=== PATIENT | female | born 1985 | race Caucasian/White ===

== ENCOUNTER 2021-01-18 22:11 | Inpatient (IN) | payer BC, OTHER ==
[~2021-01-18] VITALS: Ht 160 cm; Wt 94.0 kg
[2021-01-18] MEDS ORDERED: KETOROLAC 30 MG/1 ML IVPush ONE (23:30)
[2021-01-18] MEDS ORDERED: SODIUM CHLORIDE FLUSH 10ML SYR IVF ONE (23:30)
[2021-01-18] MEDS ORDERED: MORPHINE SULFATE 4 MG/ML, 1ML IVPush PRN (23:30)
[2021-01-18] MEDS ORDERED: KETOROLAC 30 MG/1 ML ONE (23:40)
[2021-01-18] MEDS ORDERED: MORPHINE SULFATE 4 MG/ML, 1ML ONE (23:40)
[2021-01-18] MEDS ORDERED: PLEASE ENTER ALLERGIES MC SCH (23:45)
[2021-01-18 23:54] LABS: BASOPHILS % (AUTO) 0 % (0-1); EOSINOPHILS % (AUTO) 0 % (1-7); LYMPHOCYTES % (AUTO) 4 % (22-44); MEAN CORPUSCULAR HEMOGLOBIN 29.2 pg (27.0-34.8); MEAN CORPUSCULAR HGB CONC 33.3 g/dL (32.4-35.8); MEAN PLATELET VOLUME 7.6 fL (7.4-10.4); MONOCYTES % (AUTO) 4 % (2-9); NEUTROPHILS % (AUTO) 92 % (42-75); PLATELET COUNT 335 x10^3/uL (130-400); RED BLOOD COUNT 4.97 x10^6/uL (3.82-5.3); RED CELL DISTRIBUTION WIDTH 14.6 % (9.6-15.2)
[2021-01-19] MEDS ORDERED: SODIUM CHLORIDE 0.9% 1,000ML IVBOLUS ONE
--- NOTE | 2021-01-19 | NUR ---
PATIENT REPORTS SHE IS PASSING A KIDNEY STONE SINCE AUGUST AND WOULD LIKE IT SURGICALLY REMOVED. RECENT CT SCAN SHOWED 6MM STONE IN THE DISTAL LEFT URETER. +NAUSEA/ VOMITING. HX OF KIDNEY STONES. GASTRIC BYPASS SURGERY 14 DAYS AGO.
--- NOTE | 2021-01-19 | NUR ---
PIV placed, meds given per order, pt tolerated well.
[2021-01-19 00:07] LABS: ALBUMIN 3.7 g/dL (3.4-5.0); ANION GAP 14 mmol/L (5-15); CALCIUM 8.7 mg/dL (8.5-10.1); CHLORIDE 107 mmol/L (98-107)
[2021-01-19 00:14] LABS: ALANINE AMINOTRANSFERASE 54 U/L (12-78); ALKALINE PHOSPHATASE 57 U/L (45-117); BILIRUBIN,TOTAL 0.9 mg/dL (0.2-1.0); CREATININE 0.92 mg/dL (0.55-1.02); TOTAL PROTEIN 8.5 g/dL (6.4-8.2)
[2021-01-19 00:19] LABS: MICROSCOPIC AUTO
--- NOTE | 2021-01-19 00:24 | NUR ---
[facility] at bedside to discuss poc. pt aware of admit plan
[2021-01-19] MEDS ORDERED: NS + 20MEQ KCL 1,000 ML IV SCH (00:30)
[2021-01-19] MEDS ORDERED: ACETAMINOPHEN 325 MG TABLET PO PRN (00:30)
[2021-01-19] MEDS ORDERED: morphine SULFATE 10 MG/ML, 1ML IVPush PRN (00:30)
[2021-01-19] MEDS ORDERED: ONDANSETRON 2MG/ML, 2ML IVPush PRN ×2 (00:30→17:00)
[2021-01-19] MEDS ORDERED: BISACODYL 10 MG SUPP PR PRN (00:30)
[2021-01-19] MEDS ORDERED: IRON1TAB60 PO (01:01)
[2021-01-19] MEDS ORDERED: APIX2.5T PO (01:01)
--- NOTE | 2021-01-19 01:08 | NUR ---
report called to Yesi JALLOH
[2021-01-19 01:33] VITALS: BP 138/94
[2021-01-19] MEDS: SODIUM CHLORIDE 0.9% 1,000 ML IV SCH ×3 (01:44→20:01)
[2021-01-19] MEDS: FAMOTIDINE 20 MG TABLET PO PRN (02:11)
[2021-01-19 05:35] LABS: BASOPHILS % (AUTO) 0 % (0-1); EOSINOPHILS % (AUTO) 0 % (1-7); LYMPHOCYTES % (AUTO) 10 % (22-44); MEAN CORPUSCULAR HEMOGLOBIN 29.7 pg (27.0-34.8); MEAN CORPUSCULAR HGB CONC 34.2 g/dL (32.4-35.8); MEAN PLATELET VOLUME 7.6 fL (7.4-10.4); MONOCYTES % (AUTO) 8 % (2-9); NEUTROPHILS % (AUTO) 82 % (42-75); PLATELET COUNT 292 x10^3/uL (130-400); RED BLOOD COUNT 4.23 x10^6/uL (3.82-5.3); RED CELL DISTRIBUTION WIDTH 14.5 % (9.6-15.2)
[2021-01-19 05:50] LABS: ANION GAP 11 mmol/L (5-15); CALCIUM 8.1 mg/dL (8.5-10.1); CHLORIDE 112 mmol/L (98-107)
[2021-01-19 05:51] LABS: CREATININE 0.67 mg/dL (0.55-1.02)
[2021-01-19 08:00] VITALS: BP 101/69
[2021-01-19 13:56] VITALS: BP 99/68
[2021-01-19] MEDS ORDERED: CHLORHEXIDINE 15 ML UDC PO ONE (16:00)
[2021-01-19] MEDS ORDERED: MIDAZOLAM 1 MG/ML, 2ML ONE (16:25)
[2021-01-19] MEDS ORDERED: FENTANYL PF 100 MCG/2ML ONE (16:25)
[2021-01-19] MEDS ORDERED: OMNIPAQUE 350 MG/ML, 50 ML BOTTLE ONE (16:32)
[2021-01-19] MEDS ORDERED: HYDROcodone/APAP 7.5-325MG/15ML UDC PO PRN (17:00)
[2021-01-19] MEDS ORDERED: MEPERIDINE/PF 25MG/0.5ML IVPush PRN (17:00)
[2021-01-19] MEDS ORDERED: HYDROmorphone 1 MG/ML, 1ML INJ IVPush PRN (17:00)
[2021-01-19] MEDS ORDERED: OXYcodone 5 MG/5 ML ORAL.SOL UDC PO PRN (17:00)
[2021-01-19] MEDS ORDERED: KETOROLAC 30 MG/1 ML IVPush PRN (17:00)
[2021-01-19] MEDS ORDERED: PROMETHAZINE 25 MG/ML, 1ML IVPush PRN (17:00)
[2021-01-19] MEDS ORDERED: FENTANYL PF 100 MCG/2ML IV PRN (17:00)
[2021-01-19] MEDS ORDERED: OMNIPAQUE 350 MG/ML, 50 ML BOTTLE IV ONE (17:05)
[2021-01-19] MEDS ORDERED: ONDANSETRON 2MG/ML, 2ML ONE (17:25)
[2021-01-19] MEDS ORDERED: ROCURONIUM 10MG/ML,5ML ONE (17:25)
[2021-01-19] MEDS ORDERED: NEOSTIGMINE 1 MG/ML, 10ML ONE (17:25)
[2021-01-19] MEDS ORDERED: GLYCOPYRROLATE 0.2MG/1ML, 5ML ONE (17:25)
[2021-01-19] MEDS ORDERED: DEXAMETHASONE 4 MG/ML, 1ML ONE (17:25)
[2021-01-19] MEDS ORDERED: PROPOFOL 10 MG/ML, 20ML ONE (17:25)
[2021-01-19] MEDS ORDERED: SUCCINYLCHOLINE 20 MG/ML, 10ML ONE (17:25)
[2021-01-19] MEDS ORDERED: CEFAZOLIN 1,000 MG ONE (17:25)
[2021-01-19] MEDS ORDERED: PHENAZOPYRIDINE 200 MG TABLET PO PRN (17:30)
[2021-01-19] MEDS ORDERED: OPIUM/BELLADONNA SUPP.RECT 16.2-30 MG PR PRN (17:30)
[2021-01-19 19:49] VITALS: BP 110/75
[2021-01-20] MEDS: FAMOTIDINE 20 MG TABLET PO PRN (00:01)
[2021-01-20 02:34] VITALS: BP 112/72
[2021-01-20] MEDS: SODIUM CHLORIDE 0.9% 1,000 ML IV SCH (05:37)
[2021-01-20 06:27] LABS: ANION GAP 10 mmol/L (5-15); CALCIUM 8.1 mg/dL (8.5-10.1); CHLORIDE 113 mmol/L (98-107)
[2021-01-20 06:28] LABS: CREATININE 0.44 mg/dL (0.55-1.02)
[2021-01-20 07:58] VITALS: BP 108/72
[2021-01-20] MEDS ORDERED: PHEN-418 PO (12:19)
[2021-01-20 13:47] VITALS: BP 107/72
== END 2021-01-20 14:03 | disposition home or self-care (01) | DRG 660 ==
LOC: ED 01-19 00:16 → EDIP 01-19 00:20 → 3N 01-19 01:26
PROVIDERS: ADMIT Family Medicine; ATTEND Internal Medicine
PROC: 0T778DZ Dilation of Left Ureter with Intraluminal Device, Via Natural or Artificial Opening Endoscopic (ICD-10-PCS; 2021-01-19)
PROC: BT14ZZZ Fluoroscopy of Kidneys, Ureters and Bladder (ICD-10-PCS; 2021-01-19)
PROC: 0TC78ZZ Extirpation of Matter from Left Ureter, Via Natural or Artificial Opening Endoscopic (ICD-10-PCS; principal; 2021-01-19 17:00)
DX: N13.2 Hydronephrosis with renal and ureteral calculous obstruction (principal); E87.2 Acidosis; E87.1 Hypo-osmolality and hyponatremia; E66.9 Obesity, unspecified; E87.6 Hypokalemia; D72.829 Elevated white blood cell count, unspecified; I10 Essential (primary) hypertension; Z20.822 Contact with and (suspected) exposure to COVID-19; Z68.36 Body mass index [BMI] 36.0-36.9, adult; Z90.721 Acquired absence of ovaries, unilateral; Z98.84 Bariatric surgery status
CPT/HCPCS: 36415; 74420; 76770; 80048; 80053; 81001; 82360; 83690; 84703; 85025; 87086; 87635; 88300; 99285; G0378; J0690; J1100; J1885; J2250; J2405; J2704; J2710; J3010; Q9967; C1769; C2617; J0330; J2270; J7030